=== PATIENT | female | born 1985 ===

== ENCOUNTER 2017-09-17 00:16 | Emergency (ER) | payer SELFPAY ==
[~2017-09-17] VITALS: Ht 149.9 cm; Wt 95.5 kg
[2017-09-17] MEDS ORDERED: LORA10TA7 PO (00:26)
[2017-09-17] MEDS ORDERED: BECL10.62 IH (00:26)
[2017-09-17] MEDS ORDERED: ALBU8.5H8 IH (00:26)
[2017-09-17 02:39] VITALS: BP 135/82
== END 2017-09-17 03:06 | disposition left against medical advice (07) ==
LOC: EMS 00:18
DX: Z53.21 Procedure and treatment not carried out due to patient leaving prior to being seen by health care provider (principal)
CPT/HCPCS: 99281